=== PATIENT | female | born 1965 | race Caucasian/White ===

== ENCOUNTER 2020-02-24 22:17 | Observation (INO) ==
--- OUTSIDE RECORDS SUMMARY | 2020-02-24 22:20 | External Medical Summary | Continuity of Care Document ---
:1965 Author Name Melisa Valencia Address Unavailable Unavailable , Care Team Providers Name Role Phone Sabiha Geronimo Unavailable [email or web address] Kaycee SELBY Unavailable Unavailable Problems Active medical history not documented Allergies and Adverse Reactions Allergy history not documented Medications Medications not documented Procedures Procedures not documented Immunizations Immunizations not documented Plan of Treatment Planned Observations Planned Goals not documented Results No Known Results Results not documented Encounters Appointment; Sabiha Geronimo, X-Ray Tech 1 10-Jul-2013 8:45 Encounter Diagnosis: Problem not documented
--- OUTSIDE RECORDS SUMMARY | 2020-02-24 22:20 | External Medical Summary | Continuity of Care Document ---
:1965 Author Name Melisa Valencia Address Unavailable Unavailable , Care Team Providers Name Role Phone Sabiha Geronimo Unavailable [email or web address] Kaycee SELBY Unavailable Unavailable Problems Active medical [...]
[2020-02-24] MEDS ORDERED: ONDANSETRON INJ 2 MG/ML 2 ML VIAL IV STA (22:34)
[2020-02-24] MEDS ORDERED: MoRPHine SULFATE 4 MG/ML 1 ML CARP\\VIAL IV STA (22:34)
[2020-02-24] MEDS ORDERED: SODIUM CHLORIDE 0.9% 1000ML 1,000 ML IV ONE (22:34)
[2020-02-24 22:53] LABS: Basophils # (auto) 0.01 K/uL (0-0.2); Basophils % (auto) 0.1 %; Eosinophils # (auto) 0.02 K/uL (0-0.5); Eosinophils % (auto) 0.3 %; Hematocrit (blood only) 37.9 % (37-47); Hemoglobin 12.8 g/dL (12.0-16.0); Immature Granulocytes # (auto) 0.02 K/uL (0.00-0.02); Immature Granulocytes % (auto) 0.3 %; Lymphocytes # (auto) 0.52 K/uL (1.2-3.4); Lymphocytes % (auto) 6.9 %; Mean Corpuscular Hemoglobin 33.1 pg (25-34); Mean Corpuscular Hgb Conc 33.8 g/dL (32-36); Mean Corpuscular Volume 97.9 fL (80-100); Mean Platelet Volume 8.8 fL (7.4-10.4); Monocytes # (auto) 0.02 K/uL (0.11-0.59); Monocytes % (auto) 0.3 %; Neutrophils % (auto) 92.1 %; Platelet Count 197 K/uL (130-400); RDW Standard Deviation 46.1 fL (36.4-46.3); Red Blood Count 3.87 M/uL (4.2-5.4); White Blood Count 7.59 K/uL (4.8-10.8)
[2020-02-24 23:01] LABS: Pregnancy Test, Urine Negative (Negative)
[2020-02-24 23:06] LABS: Appearance Urine Clear (Clear); Bacteria Urine Automated 1+ (Negative); Bilirubin Urine Negative (Negative); Blood Urine Negative (Negative); Color Urine Yellow; Epithelial Cell Urine Auto >30 /lpf (0-5); Glucose Urine UA Negative (Negative); Ketones Urine Negative (Negative); Leukocyte Esterase Urine Trace (Negative); Nitrite Urine Negative (Negative); Protein Urine Negative (Negative); RBC Urine Automated 0-4 /hpf (0-4); Specific Gravity Urine 1.019 (1.000-1.030); Urobilinogen Urine Negative (Negative)
[2020-02-24 23:21] LABS: Albumin Globulin Ratio 0.9 (0.9-2); Albumin Level 3.4 gm/dl (3.4-5.0); BUN Creatinine Ratio 18.3 (10-20); Bilirubin,Total 1.1 mg/dl (0.2-1); Calcium 8.9 mg/dl (8.5-10.1); Creatinine Clr Calc Pharmacy 76.9 ml/min; Est GFR (African American) 93.3; Est GFR (Non-African American) 80.5; Globulin 3.8 gm/dl (2.5-4.0); Total Protein 7.2 gm/dl (6.4-8.2)
[2020-02-24] MEDS ORDERED: IOVERSOL 100ml IV ONE (23:46)
[2020-02-25] MEDS ORDERED: cefOXitin 2,000 MG/60 ML BAG IV STA (00:16)
--- NOTE | 2020-02-25 01:03 | History & Physical Report ---
Date of Service February 25, 2020 Assessment & Plan (1) Appendicitis: -admit and plan for appendectomy with Dr. Brown in morning: -continue abx--she has received mefoxin in ED -provide analgesics and anti-emetics -keep npo -hydrate with IVF -as noted in HPI, COVID test noted to be (-) -will check baseline CXR and EKG -risks, benefit, and alternatives discussed with pt. and she wishes to proceed as above. pt seen. discussed options and risks ( bleeding/injury to an organ such as bowel/ureter/bladder etc..., dvt/pe/mi/cva/etc... discussed possible open. questions answered. will proceed with lap appy this AM. History of Present Illness Chief Complaint: Abdominal pain Primary Care Provider: Pradip Bennett MD 54 year old female developed RLQ abdominal pain around 3pm on 02/24/20. She denies fevers, shakes, chills, but did have N/V. Pain is non-radiating and worse with palpation, improved with analgesics. her bowel have been functioning in a normal fashion. She has had one prior abdominal surgery, a about 18 years ago. In the ED, she was afebrile with normal WBC. Ct scan of the abdomen showed concern for an uncomplicated acute appendicitis. Urine test was (-). COVID-19 test was (-). She notes she leads an active lifestyle and denies CANNON or CP with activity. She is a non smoker. She notes she has several co-workers that tested (+) for COVID, but she has not been infected to the best of her knowledge. She has no cough, fever, SOB, loss of taste, loss of smell. At the time of my exam, she was comfortable, in no distress. Allergies Allergy/AdvReac Type Severity Reaction Status Date / Time Penicillins Allergy Intermediate hives as a Verified 02/25/20 08:18 child Home Medications Medication Instructions Recorded Confirmed Type calcium 600 mg PO DAILY 02/24/20 02/24/20 History magnesium 250 mg PO DAILY 02/24/20 02/24/20 History multivitamin 1 tab PO DAILY 02/24/20 02/24/20 History omega-3 fatty acids [Fish Oil] 1,000 mg PO DAILY 02/24/20 02/24/20 History selenium 0 mcg PO DAILY 02/24/20 02/24/20 History Past Med/Surg History Medical History (Updated 02/25/20 @ 07:50 by Giovanni Boyer MD) delivery delivered Hyperlipidemia Kidney stones Mood disorder Surgical History H/O wrist surgery Social History Smoking Status: Never smoker Second Hand Exposure: No; Do You Dip or Chew Tobacco: No; Tobacco Cessation Education Requested by Patient: No Hx Alcohol Use: Yes Hx Substance Use: No Preferred Language: Ugandan 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 Beliefs That Will Affect Care: None Current Living Situation Comment: Lives with SON Other Information That Helps Us Care for You: No Feels Safe at Home: Yes Safety Concerns: Feels Safe At This Time Assistive Devices: None Review of Systems Constitutional: no fever and no chills Eyes: no diplopia Respiratory: no cough and no dyspnea Cardiovascular: no chest pain Gastrointestinal: + abdominal pain, + nausea and + vomiting Genitourinary: no dysuria Musculoskeletal: no back pain Integumentary: no rash Neurologic: no localized weakness Physical Exam Constitutional: well developed and well nourished; no acute distress Eyes: + conjunctival abnormality wears glasses ENMT: Ears: no hearing impairment Neck: trachea midline, no thyromegaly Respiratory: normal respiratory effort, lungs clear to auscultation Cardiovascular: Rate/Rhythm: regular rate and regular rhythm Gastrointestinal (Abdomen): Percussion/Palpation: + abdomen tender (RLQ, no rebound tenderness, no guarding ) and abdomen soft Musculoskeletal: no calf pain Skin: no rashes, warm and dry Neurologic: moves all extremities Psychiatric: A+Ox3, euthymic affect Results & Data Results & Data ([facility]) Vital Signs (Past 12 Hours) Vital Signs Temp Pulse Pulse Resp BP BP Pulse Ox 02/25/20 00:40 106 H 18 106/66 97 02/24/20 23:24 103 H 18 113/65 96 02/24/20 22:56 95 02/24/20 22:19 37.5 C 120 H 18 134/78 97 PG Care Time/CCT Total # of Minutes Spent Total Time Spent with Patient: Total time spent is greater than 50% in coordination of care (as documented) at patient's floor/unit and/or counseling patient: Coding Level of Care Code 62202 OBS Care - Level 3 Diagnoses Appendicitis K37
[2020-02-25] MEDS ORDERED: MoRPHine SULFATE 4 MG/ML 1 ML CARP\\VIAL IV STA (01:16)
[2020-02-25] MEDS ORDERED: ONDANSETRON INJ 2 MG/ML 2 ML VIAL IV PRN ×2 (01:40→08:40)
[2020-02-25] MEDS: LACTATED RINGER'S 1,000 ML IV SCH ×2 (02:06→22:06)
[2020-02-25] MEDS: ACETAMINOPHEN 1,000 MG/100 ML VIAL IV SCH ×3 (02:07→17:59)
[2020-02-25 02:17] LABS: BUN Creatinine Ratio 12.5 (10-20); Calcium 8.3 mg/dl (8.5-10.1); Creatinine Clr Calc Pharmacy 64.5 ml/min; Est GFR (African American) 75.4; Est GFR (Non-African American) 65.1; Potassium 3.9 mmol/L (3.5-5.1)
--- NOTE | 2020-02-25 03:48 | Emergency Department Note ---
History of Present Illness General Chief complaint: Abdominal Pain Stated complaint: PAIN IN LOWER RT ABD Time Seen by Provider: 02/24/20 22:24 History of Present Illness Maximum Pain Intensity: 7 This 54-year-old presents to the ER complaining of right lower quadrant pain Location: Right lower quadrant Quality: Achy Severity: Moderate Duration: Tonight Timing: tonight Context: Pain persisted and patient came in Modifying factors: better with nothing; worse with nothing patient has a history of kidney stones and feels Similar. She has not required lithotripsy or stents in the past. Patient denies chest pain, dyspnea, fever, chills, urinary symptoms, flulike illness. Home Medications Medication Instructions Recorded Confirmed Type calcium 600 mg PO DAILY 02/24/20 02/24/20 History magnesium 250 mg PO DAILY 02/24/20 02/24/20 History multivitamin 1 tab PO DAILY 02/24/20 02/24/20 History omega-3 fatty acids [Fish Oil] 1,000 mg PO DAILY 02/24/20 02/24/20 History selenium 0 mcg PO DAILY 02/24/20 02/24/20 History Allergies Allergy/AdvReac Type Severity Reaction Status Date / Time Penicillins Allergy Intermediate Unknown Verified 02/24/20 22:48 Past Med/Surg History Medical History delivery delivered Surgical History H/O wrist surgery Social History Smoking Status: Never smoker Second Hand Exposure: No; Do You Dip or Chew Tobacco: No; Tobacco Cessation Education Requested by Patient: No Hx Alcohol Use: Yes Hx Substance Use: No Preferred Language: Portuguese 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 Beliefs That Will Affect Care: None Current Living Situation Comment: Lives with SON Other Information That Helps Us Care for You: No Feels Safe at Home: Yes Safety Concerns: Feels Safe At This Time Assistive Devices: Glasses Review of Systems A total of 10 systems reviewed and were otherwise negative Physical Exam Vital Signs Vital Signs - 24 hr 02/24/20 22:19 02/24/20 22:56 02/24/20 23:24 Temperature 37.5 C Temperature Source Oral Pulse Rate 120 H Pulse Rate [Apical] 103 H Respiratory Rate 18 18 Respiratory Effort / Characteristics Non-Labored Spontaneous Respiratory Depth Normal Respiratory Pattern Regular Blood Pressure 134/78 Blood Pressure [Left Arm] 113/65 Blood Pressure Mean 96 Blood Pressure Mean [Left Arm] 81 Blood Pressure Position Sitting Pulse Oximetry 97 95 96 Oxygen Delivery Method Room Air Room Air Room Air Sepsis Recent Fever Within 48 Hours No Sepsis New/Unexplained Change in Mental Status No Sepsis Action Taken by Nursing No Action Required 02/25/20 00:40 Temperature Temperature Source Pulse Rate Pulse Rate [Apical] 106 H Respiratory Rate 18 Respiratory Effort / Characteristics Respiratory Depth Respiratory Pattern Blood Pressure Blood Pressure [Left Arm] 106/66 Blood Pressure Mean Blood Pressure Mean [Left Arm] 79 Blood Pressure Position Pulse Oximetry 97 Oxygen Delivery Method Room Air Sepsis Recent Fever Within 48 Hours Sepsis New/Unexplained Change in Mental Status Sepsis Action Taken by Nursing VITALS: Vitals are noted on the nurse's note and reviewed by myself. Vital signs stable. GENERAL: Pleasant female, in no acute distress, nondiaphoretic, well-developed well-nourished. SKIN: Capillary reflex less than 2 seconds. HEENT: Normocephalic. PERRLA. EOMI. Nares patent. Mucous membranes moist. Neck is supple without nuchal rigidity. HEART: Regular rate and rhythm without murmurs gallops or rubs. LUNGS: Clear to auscultation bilaterally without wheezes, rales or rhonchi. No retractions or accessory muscle use. ABDOMEN: Positive bowel sounds x 4. Normal tympanic percussion. Soft, tender to palpation right lower quadrant, without masses or organomegaly. Meneses sign negative. No guarding or rebound tenderness. No CVA tenderness MUSCULOSKELETAL: No gross musculoskeletal defects. NEURO: Patient was alert and oriented to person place and time. No focal neurological deficits. Course Administered Medications Acetaminophen (Ofirmev) 1,000 mg in 100 mls @ 400 mls/hr IV Q8H [facility] Stop: 02/28/20 01:59 Last Infusion: 02/25/20 02:24 Dose: 0 mls/hr Documented by: [id number] Admin: 02/25/20 02:07 Dose: 400 mls/hr Documented by: [id number] Lactated Ringer's (Lr) 1,000 mls @ 75 mls/hr IV .[id number] [facility] Stop: 03/26/20 01:39 Last Admin: 02/25/20 02:06 Dose: 75 mls/hr Documented by: [id number] Discontinued Medications Sodium Chloride (Nss 1000ml) 1,000 mls @ 999 mls/hr IV .[id number] ONE Stop: 02/24/20 23:34 Last Infusion: 02/25/20 00:03 Dose: 0 mls/hr Documented by: [id number] Admin: 02/24/20 22:53 Dose: 999 mls/hr Documented by: [id number] Cefoxitin Sodium (Mefoxin) 2,000 mg in 60 mls @ 100 mls/hr IV NOW STA Stop: 02/25/20 00:51 Last Infusion: 02/25/20 01:19 Dose: 0 mls/hr Documented by: [id number] Admin: 02/25/20 00:26 Dose: 100 mls/hr Documented by: [id number] Ioversol (Ioversol 100ml) 100 ml IV ONCE ONE Stop: 02/24/20 23:47 Last Admin: 02/24/20 23:46 Dose: 92 ml Documented by: [id number] Morphine Sulfate (Morphine Sulfate 4 Mg/Ml 1 Ml Carp\Vial) 4 mg IV NOW STA Stop: 02/24/20 22:35 Last Admin: 02/24/20 22:54 Dose: 4 mg Documented by: [id number] Morphine Sulfate (Morphine Sulfate 4 Mg/Ml 1 Ml Carp\Vial) 4 mg IV NOW STA Stop: 02/25/20 01:17 Last Admin: 02/25/20 01:19 Dose: 4 mg Documented by: [id number] Ondansetron HCl (Ondansetron Inj 2 Mg/Ml 2 Ml Vial) 4 mg IV NOW STA Stop: 02/24/20 22:35 Last Admin: 02/24/20 22:54 Dose: 4 mg Documented by: [id number] Medical Decision Making Medical Records Attestation: I reviewed the patient's medical records. Home Medications Current Medication List: was personally reviewed by me Laboratory Data Attestation: I reviewed the patient's lab results. Result diagrams: 02/24/20 22:44 02/25/20 01:52 Lab Results 02/24/20 02/24/20 02/24/20 Range/Units 22:26 22:26 22:44 WBC 7.59 (4.8-10.8) K/uL RBC 3.87 L (4.2-5.4) M/uL Hgb 12.8 (12.0-16.0) g/dL Hct 37.9 (37-47) % MCV 97.9 (80-100) fL MCH 33.1 (25-34) pg MCHC 33.8 (32-36) g/dL RDW Std Deviation 46.1 (36.4-46.3) fL RDW Coeff of Dayna 13.0 (11.5-14.5) % Plt Count 197 (130-400) K/uL MPV 8.8 (7.4-10.4) fL Immature Gran % (Auto) 0.3 % Neut % (Auto) 92.1 % Lymph % (Auto) 6.9 % [place] % (Auto) 0.3 % Eos % (Auto) 0.3 % Baso % (Auto) 0.1 % Neut # (Auto) 7.00 H (1.4-6.5) K/uL Lymph # (Auto) 0.52 L (1.2-3.4) K/uL [place] # (Auto) 0.02 L (0.11-0.59) K/uL Eos # (Auto) 0.02 (0-0.5) K/uL Baso # (Auto) 0.01 (0-0.2) K/uL Immature Gran # (Auto) 0.02 (0.00-0.02) K/uL Sodium (136-145) mmol/L Potassium (3.5-5.1) mmol/L Chloride (98-107) mmol/L Carbon Dioxide (21-32) mmol/L Anion Gap (3-11) BUN (7-18) mg/dl Creatinine (0.6-1.2) mg/dl Est Cr Clr Drug Dosing ml/min Est GFR ( Amer) Est GFR (Non-Af Amer) BUN/Creatinine Ratio (10-20) Glucose (70-99) mg/dl Calcium (8.5-10.1) mg/dl Total Bilirubin (0.2-1) mg/dl AST (15-37) U/L ALT (12-78) U/L Alkaline Phosphatase (45-117) U/L Total Protein (6.4-8.2) gm/dl Albumin (3.4-5.0) gm/dl Globulin (2.5-4.0) gm/dl Albumin/Globulin Ratio (0.9-2) Urine Color Yellow Urine Appearance Clear (Clear) Urine pH 7.0 (4.5-7.5) Ur Specific [place] 1.019 (1.000-1.030) Urine Protein Negative (Negative) Urine Glucose (UA) Negative (Negative) Urine Ketones Negative (Negative) Urine Blood Negative (Negative) Urine Nitrite Negative (Negative) Urine Bilirubin Negative (Negative) Urine Urobilinogen Negative (Negative) Ur Leukocyte Esterase Trace H (Negative) Urine WBC (Auto) 1-5 (0-5) /hpf Urine RBC (Auto) 0-4 (0-4) /hpf U Hyaline Cast (Auto) 1-5 (0-5) /lpf U Epithel Cells (Auto) >30 H (0-5) /lpf Urine Bacteria (Auto) 1+ H (Negative) Urine Test Negative (Negative) COVID-19 Eval Order SARS-CoV-2, RNA, NAAT (NEGATIVE) 02/24/20 02/25/20 02/25/20 Range/Units 22:44 00:29 00:29 WBC (4.8-10.8) K/uL RBC (4.2-5.4) M/uL Hgb (12.0-16.0) g/dL Hct (37-47) % MCV (80-100) fL MCH (25-34) pg MCHC (32-36) g/dL RDW Std Deviation (36.4-46.3) fL RDW Coeff of Dayna (11.5-14.5) % Plt Count (130-400) K/uL MPV (7.4-10.4) fL Immature Gran % (Auto) % Neut % (Auto) % Lymph % (Auto) % [place] % (Auto) % Eos % (Auto) % Baso % (Auto) % Neut # (Auto) (1.4-6.5) K/uL Lymph # (Auto) (1.2-3.4) K/uL [place] # (Auto) (0.11-0.59) K/uL Eos # (Auto) (0-0.5) K/uL Baso # (Auto) (0-0.2) K/uL Immature Gran # (Auto) (0.00-0.02) K/uL Sodium 137 (136-145) mmol/L Potassium (3.5-5.1) mmol/L Chloride 108 H (98-107) mmol/L Carbon Dioxide 22 (21-32) mmol/L Anion Gap 8.0 (3-11) BUN 15 (7-18) mg/dl Creatinine 0.83 (0.6-1.2) mg/dl Est Cr Clr Drug Dosing 76.9 ml/min Est GFR ( Amer) 93.3 Est GFR (Non-Af Amer) 80.5 BUN/Creatinine Ratio 18.3 (10-20) Glucose 131 H (70-99) mg/dl Calcium 8.9 (8.5-10.1) mg/dl Total Bilirubin 1.1 H (0.2-1) mg/dl AST (15-37) U/L ALT 19 (12-78) U/L Alkaline Phosphatase 66 (45-117) U/L Total Protein 7.2 (6.4-8.2) gm/dl Albumin 3.4 (3.4-5.0) gm/dl Globulin 3.8 (2.5-4.0) gm/dl Albumin/Globulin Ratio 0.9 (0.9-2) Urine Color Urine Appearance (Clear) Urine pH (4.5-7.5) Ur Specific [place] (1.000-1.030) Urine Protein (Negative) Urine Glucose (UA) (Negative) Urine Ketones (Negative) Urine Blood (Negative) Urine Nitrite (Negative) Urine Bilirubin (Negative) Urine Urobilinogen (Negative) Ur Leukocyte Esterase (Negative) Urine WBC (Auto) (0-5) /hpf Urine RBC (Auto) (0-4) /hpf U Hyaline Cast (Auto) (0-5) /lpf U Epithel Cells (Auto) (0-5) /lpf Urine Bacteria (Auto) (Negative) Urine Test (Negative) COVID-19 Eval Order Covid19 [facility]Now [facility] SARS-CoV-2, RNA, NAAT NEGATIVE (NEGATIVE) 02/25/20 Range/Units 00:29 WBC (4.8-10.8) K/uL RBC (4.2-5.4) M/uL Hgb (12.0-16.0) g/dL Hct (37-47) % MCV (80-100) fL MCH (25-34) pg MCHC (32-36) g/dL RDW Std Deviation (36.4-46.3) fL RDW Coeff of Dayna (11.5-14.5) % Plt Count (130-400) K/uL MPV (7.4-10.4) fL Immature Gran % (Auto) % Neut % (Auto) % Lymph % (Auto) % [place] % (Auto) % Eos % (Auto) % Baso % (Auto) % Neut # (Auto) (1.4-6.5) K/uL Lymph # (Auto) (1.2-3.4) K/uL [place] # (Auto) (0.11-0.59) K/uL Eos # (Auto) (0-0.5) K/uL Baso # (Auto) (0-0.2) K/uL Immature Gran # (Auto) (0.00-0.02) K/uL Sodium (136-145) mmol/L Potassium (3.5-5.1) mmol/L Chloride (98-107) mmol/L Carbon Dioxide (21-32) mmol/L Anion Gap (3-11) BUN (7-18) mg/dl Creatinine (0.6-1.2) mg/dl Est Cr Clr Drug Dosing ml/min Est GFR ( Amer) Est GFR (Non-Af Amer) BUN/Creatinine Ratio (10-20) Glucose (70-99) mg/dl Calcium (8.5-10.1) mg/dl Total Bilirubin (0.2-1) mg/dl AST (15-37) U/L ALT (12-78) U/L Alkaline Phosphatase (45-117) U/L Total Protein (6.4-8.2) gm/dl Albumin (3.4-5.0) gm/dl Globulin (2.5-4.0) gm/dl Albumin/Globulin Ratio (0.9-2) Urine Color Urine Appearance (Clear) Urine pH (4.5-7.5) Ur Specific [place] (1.000-1.030) Urine Protein (Negative) Urine Glucose (UA) (Negative) Urine Ketones (Negative) Urine Blood (Negative) Urine Nitrite (Negative) Urine Bilirubin (Negative) Urine Urobilinogen (Negative) Ur Leukocyte Esterase (Negative) Urine WBC (Auto) (0-5) /hpf Urine RBC (Auto) (0-4) /hpf U Hyaline Cast (Auto) (0-5) /lpf U Epithel Cells (Auto) (0-5) /lpf Urine Bacteria (Auto) (Negative) Urine Test (Negative) COVID-19 Eval Order SARS-CoV-2, RNA, NAAT NEGATIVE (NEGATIVE) Imaging Data Attestation: I personally reviewed and interpreted this imaging study as follows: MDM Narrative Prior records/ancillary studies reviewed. Triage Nursing notes reviewed. The patient's history was concerning for abdominal pain. Differential diagnosis: Etiologies such as appendicitis, diverticulitis, PUD, biliary pathology, UTI, pancreatitis, obstruction, mesenteric ischemia, aortic pathology, infections, inflammatory bowel disease, renal colic, as well as others were entertained. Physical examination findings: As above. ER treatment provided: An order was placed for continuous cardiac monitoring. The monitor shows a rate of 60-110 with a sinus rhythm. IV fluids, morphine, Mefoxin, Zofran On reassessment the patient felt better. Diagnostics interpreted by me: The labs revealed no leukocytosis. Negative hCG Imaging studies: CT ABDOMEN & PELVIS With Contrast: The appendix is fluid-filled and dilated to 10 mm with mild surrounding inflammatory change, compatible with acute uncomplicated appendicitis. No evidence of perforation or abscess formation. Nephrolithiasis involving both kidneys without hydronephrosis. Crenulated cyst right ovary. Radiologist: Faye Hinojosa M.D. Consultation: A consultation was placed with the surgical PA Colt. The case was discussed and diagnostics were reviewed. The patient was evaluated in the ER for further treatment. Exam and history seem consistent with acute appendicitis. Surgery was consulted. They will admit. Patient started antibiotics. Patient is agreeable treatment plan of admission. By the evaluation outlined above emergent etiologies such as diverticulitis, PUD, biliary pathology, UTI, pancreatitis, obstruction, mesenteric ischemia, aortic pathology, inflammatory bowel disease, renal colic, as well as others were deemed relatively unlikely. The pt informed about the findings as listed above. All questions were answered and pleased with the treatment. The chart was completed utilizing [employer] voice recognition software. Grammatical errors, random word insertions, pronoun errors, and incomplete sentences are an occassional consequence of this system due to software limitations, ambient noise, and hardware issues. Any formal questions or concerns about the content, text, or information contained within the body of this dictation should be directly addressed to the physician product development assistant for clarification. Impression & Plan Acute appendicitis Discharge Plan Visit Data Chief Complaint: Abdominal Pain Stated Complaint: PAIN IN LOWER RT ABD ED Provider: Fernando Nicholas ED Midlevel Provider: Nadiya Carias Discharge Problem: Acute appendicitis Patient Disposition: Admitted As Inpatient Condition: Good Discharge Instructions Interventions: ED Discharge Assessment Last Done: 02/25/20 01:30
[2020-02-25] MEDS: MoRPHine SULFATE 2 MG/ML CARP IV PRN ×2 (04:14→07:11)
[2020-02-25] MEDS: cefOXitin 2,000 MG in DEXTROSE 5% 50 ML IV SCH ×3 (05:46→19:52)
[2020-02-25] MEDS ORDERED: DEXAMETHASONE SOD INJ 4 MG/ML VIAL ONE (07:25)
[2020-02-25] MEDS ORDERED: GLYCOPYRROLATE 0.2 MG/ML VIAL ONE (07:25)
[2020-02-25] MEDS ORDERED: ROCURONIUM BROMIDE 10 MG/ML 5 ML VIAL IV ONE (07:25)
[2020-02-25] MEDS ORDERED: ONDANSETRON INJ 2 MG/ML 2 ML VIAL ONE (07:25)
[2020-02-25] MEDS ORDERED: PROPOFOL IV EMULSION 10 MG/ML 20 ML VIAL IV ONE (07:25)
[2020-02-25] MEDS ORDERED: LIDOCAINE HCL 2% 2 ML VIAL/AMP(20MG/ML) INFIL ONE (07:25)
[2020-02-25] MEDS ORDERED: NEOSTIGMINE METHYLSULFATE 5 MG/5 ML SYR ONE (07:25)
[2020-02-25] MEDS ORDERED: MIDAZOLAM HCL 1 MG/ML 2ML VIAL ONE (07:26)
[2020-02-25] MEDS ORDERED: fentaNYL citrate 100 MCG/2 ML VIAL ONE (07:26)
--- NOTE | 2020-02-25 07:51 | Anesthesiology Consultation ---
Date of Service February 25, 2020 Assessment & Plan (1) Encounter for pre-operative examination: Chart Review Chart Review: Acceptable Risk for Surgery History Surgery Operation Date: 02/25/20 13:20 Proposed Procedures p Laparoscopic Appendectomy - Tacho Brown, Height/Weight Height: 5 ft 4 in Weight: 67.2 kg Allergies Allergy/AdvReac Type Severity Reaction Status Date / Time Penicillins Allergy Intermediate Unknown Verified 02/24/20 22:48 Medications Home Medications Medication Instructions Recorded Confirmed Last Taken calcium 600 mg PO DAILY 02/24/20 02/24/20 Unknown magnesium 250 mg PO DAILY 02/24/20 02/24/20 Unknown multivitamin 1 tab PO DAILY 02/24/20 02/24/20 Unknown omega-3 fatty acids [Fish Oil] 1,000 mg PO DAILY 02/24/20 02/24/20 Unknown selenium 0 mcg PO DAILY 02/24/20 02/24/20 Unknown Active Medications Generic Name Dose Route Start Last Admin Trade Name Freq PRN Reason Stop Dose Admin Cefoxitin Sodium 2,000 mg/ 60 mls @ 100 mls/hr 02/25/20 06:00 02/25/20 06:19 Dextrose IV 03/06/20 05:59 Infused Q6H HUGH Infusion Acetaminophen 1,000 mg in 100 mls @ 400 mls/hr 02/25/20 02:00 02/25/20 02:24 Ofirmev IV 02/28/20 01:59 Infused Q8H [facility] Infusion Lactated Ringer's 1,000 mls @ 75 mls/hr 02/25/20 01:40 02/25/20 02:06 Lr IV 03/26/20 01:39 75 mls/hr .[id number] HUGH Administration Morphine Sulfate 2 mg 02/25/20 01:40 02/25/20 07:11 Morphine Sulfate 2 Mg/Ml Carp IV 03/10/20 01:39 2 mg Q3H PRN Administration Pain NPO Date Last Intake of Fluids: 02/24/20 Time Last Intake of Fluids: 16:00 Date Last Intake of Solids: 02/24/20 Time Last Intake of Solids: 16:00 Past Medical History Medical History (Updated 02/25/20 @ 07:50 by Giovanni Boyer MD) delivery delivered Hyperlipidemia Kidney stones Mood disorder Past Surgical History Surgical History H/O wrist surgery Social History Smoking Status: Never smoker Do You Dip or Chew Tobacco: No Hx Alcohol Use: Yes alcohol intake frequency: a few times a week Hx Substance Use: No Physical Exam Vital Signs Last Vital Signs Temp 36.9 C 02/25/20 07:15 Pulse 93 H 02/25/20 07:15 Resp 16 02/25/20 07:15 BP 110/72 02/25/20 07:15 Pulse Ox 96 02/25/20 07:15 Testing Laboratory Results 02/24/20 22:44 02/25/20 01:52 Urine Color Yellow 02/24/20 22:26 Urine Appearance Clear (Clear) 02/24/20 22:26 Urine pH 7.0 (4.5-7.5) 02/24/20 22:26 Ur Specific [place] 1.019 (1.000-1.030) 02/24/20 22:26 Urine Protein Negative (Negative) 02/24/20 22:26 Urine Glucose (UA) Negative (Negative) 02/24/20 22:26 Urine Ketones Negative (Negative) 02/24/20 22:26 Urine Nitrite Negative (Negative) 02/24/20 22:26 Ur Leukocyte Esterase Trace (Negative) H 02/24/20 22:26 Urine WBC (Auto) 1-5 /hpf (0-5) 02/24/20 22:26 Urine RBC (Auto) 0-4 /hpf (0-4) 02/24/20 22:26 U Hyaline Cast (Auto) 1-5 /lpf (0-5) 02/24/20 22:26 U Epithel Cells (Auto) >30 /lpf (0-5) H 02/24/20 22:26 Urine Bacteria (Auto) 1+ (Negative) H 02/24/20 22:26 Urine Test Negative (Negative) 02/24/20 22:26 02/24/20 22:26 Urine Test Negative COVID test negative this AM Electrocardiogram Date: 02/25/20 Findings: + NSR @ (99)
--- NOTE | 2020-02-25 07:55 | CT Scan Report ---
ABDOMEN AND PELVIS CT WITH IV CONTRAST CT DOSE: 329.59 mGy.cm HISTORY: Right lower quadrant pain. TECHNIQUE: Multiaxial CT images of the abdomen and pelvis were performed following the use of intrave nous contrast. A dose lowering technique was utilized adhering to the principles of ALARA. COMPARISON STUDY: Abdomen and pelvis CT 03/01/2014. FINDINGS: Dilated and thick-walled appendix with associated periappendiceal fat stranding. This is co nsistent with acute appendicitis. The appendix measures up to 9 mm in diameter. No perforation or abs cess identified at this time. The lung bases are clear. No suspicious lytic or blastic osseous lesion s. The liver, gallbladder, spleen, adrenal glands, and pancreas are within normal limits. Bilateral n ephrolithiasis. No hydronephrosis. Mild bilateral cortical renal scarring. A 6 mm hypodense lesion wi thin the left kidney is technically too small to characterize but favors a cyst. The main portal vein is patent. The bladder, uterus, bilateral ovaries are within normal limits. No evidence for bowel ob struction. IMPRESSION: 1. Acute appendicitis. 2. Bilateral nephrolithiasis. No hydronephrosis. ACT 112: Negative or not required by law. Electronically signed by: Arun Brown M.D. 02/25/2020 7:54 AM
--- NOTE | 2020-02-25 08:05 | XRay Report ---
XR chest 1V portable HISTORY: pre-op COMPARISON: None. FINDINGS: The lungs are clear. Cardiac silhouette is normal in size. No pleural effusions. No pneumot horax. IMPRESSION: No acute process. ACT 112: Negative or not required by law. Electronically signed by: Arun Brown M.D. 02/25/2020 8:03 AM
--- NOTE | 2020-02-25 08:31 | History & Physical Bridge Note ---
Date of Service February 25, 2020 History & Physical Bridge Note I have examined the patient, reviewed the History & Physical and in the interval since the performance of the History & Physical I have noted the following changes of clinical significance: no changes noted
[2020-02-25] MEDS ORDERED: BUPIVACAINE/EPINEPHRINE 0.5% MPF 1:200,000 30 ML VIAL ONE (08:34)
[2020-02-25] MEDS ORDERED: ATROPINE SULFATE 0.1 MG/ML 10ML SYR IV PRN (08:40)
[2020-02-25] MEDS ORDERED: KETOROLAC 30 MG/ML VIAL IV PRN (08:40)
[2020-02-25] MEDS ORDERED: cefOXitin 2,000 MG in DEXTROSE 5% 50 ML IV STA (09:27)
[2020-02-25] MEDS ORDERED: cefOXitin 2,000 MG in DEXTROSE 5% 50 ML IV ONE (09:45)
--- NOTE | 2020-02-25 09:47 | Operative Report ---
PG Post Operative Report Pre & Post Diagnosis Operation Date: 02/25/20 13:20 Pre-Op Diagnosis: Appendicitis Post-Op Diagnosis: Appendicitis I identified the patient and participated in the time-out.: Yes Procedure Operation Date: 02/25/20 13:20 Actual Procedures p Laparoscopic Appendectomy - Tacho Brown DO Surgeon Tacho Brown DO Hot Press Operator n/a Estimated Blood Loss 5 Findings Consistent with Post-Op Diagnosis Specimens appendix Description of Procedure After informed consent was obtained the patient was taken to the operating room and placed in supine position. After successful intubation a Lemus catheter was placed and the left arm was tucked. A Lemus catheter was inserted sterilely. I began by making a periumbilical incision with an 11 blade scalpel and carried this down through the soft tissue using electrocautery. The anterior rectus fascia was opened using electrocautery and 2 #0 Vicryl stay sutures were placed. The peritoneum was elevated using hemostats and incised under direct vision using a Metzenbaum scissor. A finger sweep was performed. A 12 mm Sanchez trocar was placed and the abdomen was insufflated to 18 mmHg. A laparoscope was inserted and the abdomen was examined in 360. A suprapubic 5 mm port and a left lower quadrant 12 mm port were placed under direct vision. The patient was air planed to the left as well as placed in a slight Trendelenburg position. We began by looking in the right lower quadrant. We were able to readily identify the appendix and it was grossly inflamed. It had not perforated. There is a small amount of purulent fluid in the right lower quadrant and the pelvis. We immediately irrigated and suctioned this out. I was able to use primarily blunt dissection to pull the appendix away from the right lower quadrant sidewall. Next I was able to make a small window in the mesentery of the appendix. I was then able to use a LAISHA brown cartridge 60 mm stapler to transect first the appendix at its base with the cecum, followed by the mesentery using 2 separate cartridges. It was then placed into an Endo Catch bag and removed from the camera port site. We thoroughly irrigated the right lower quadrant as well as the pelvis. There was adequate hemostasis. I ran the small bowel backwards from the terminal ileum for about 6 feet all of which was normal. All the peritoneal surfaces were normal. Small/ large bowel, liver, stomach etc. all appeared grossly normal. We did a final irrigation and then removed all the trochars and desufflated the abdomen. The fascia of the camera port as well as the left lower quadrant were closed using 0 Vicryl in [id number] fashion. Wounds were all irrigated and closed using 4-0 Monocryl. Marcaine was injected around them for postoperative analgesia and skin glue used as a dressing. The patient was awakened extubated and transferred to recovery in stable condition. I attest to the content of the Intraoperative Record and any orders documented therein. Any exceptions are noted below. I attest to the content of the Intraoperative Record and any orders documented therein. Any exceptions are noted below.
[2020-02-25] MEDS: fentaNYL citrate 100 MCG/2 ML VIAL IV PRN ×5 (10:00→10:20)
[2020-02-25] MEDS ORDERED: Nursing to Pharmacy Communication SCH (18:30)
[2020-02-25] MEDS: oxyCODONE HCL IR 5 MG TAB (IMMEDIATE RELEASE) PO PRN (23:36)
[2020-02-26] MEDS: ACETAMINOPHEN 1,000 MG/100 ML VIAL IV SCH (01:20)
[2020-02-26] MEDS: cefOXitin 2,000 MG in DEXTROSE 5% 50 ML IV SCH ×2 (01:21→08:06)
[2020-02-26] MEDS: oxyCODONE HCL IR 5 MG TAB (IMMEDIATE RELEASE) PO PRN (06:32)
--- NOTE | 2020-02-26 06:41 | Electrocardiogram Report ---
Test Reason : Blood Pressure : / mmHG Vent. Rate : 099 BPM Atrial Rate : 099 BPM P-R Int : 116 ms QRS Dur : 078 ms QT Int : 368 ms P-R-T Axes : 045 025 035 degrees QTc Int : 472 ms Normal sinus rhythm Normal ECG When compared with ECG of 24-JUN-2015 17:15, No significant change was found Confirmed by Connor Hodges ([id number]) on 02/26/2020 6:40:52 AM Referred By: REFERRED SELF Confirmed By:Connor Hodges
--- NOTE | 2020-02-26 09:09 | Surgery Progress Note ---
Date of Service February 26, 2020 Assessment & Plan (1) Acute appendicitis: pod 1 doing well ok for d/c instructions given. Admission and Anticipated Discharge Date Admission Date: February 25, 2020 Subjective pt seen. doing well. no major complaints. Physical Exam Physical Exam: alert. nad. abd: soft. expected tenderness. wounds look good. Results & Data ([facility]) Vital Signs (Past 12 Hours) Vital Signs Temp Pulse Resp BP Pulse Ox 02/26/20 07:35 37 C 90 16 129/78 96 02/26/20 03:55 37.1 C 99 H 14 128/74 96 02/25/20 23:12 37.0 C 85 14 117/74 97 PG Care Time/CCT Total # of Minutes Spent Total Time Spent with Patient: Total time spent is greater than 50% in coordination of care (as documented) at patient's floor/unit and/or counseling patient: Coding Level of Care Code None Diagnoses Acute appendicitis K35.80
[2020-02-26] MEDS: LACTATED RINGER'S 1,000 ML IV SCH (09:37)
--- NOTE | 2020-03-02 00:17 | Discharge Summary (DS) ---
HOSPITAL COURSE: This patient is a 54-year-old female who presented to the Emergency Department on 02/25/2020 secondary to abdominal pain. In the Emergency Department, CT scan of the abdomen showed acute appendicitis. The patient was admitted to the hospital. Dr. Brown subsequently took the patient to the operating room on the day of admission where he performed a laparoscopic appendectomy. The patient was observed in the hospital 1 day and discharged home on postoperative day #1 after an uneventful postoperative course. She was provided with appropriate wound care, followup, and discharge instructions.
== END 2020-02-26 11:15 | disposition home or self-care (01) ==
LOC: 3W 22:17 → ED 22:17 → 3W 02-25 01:30